=== PATIENT | female | born 1990 | race Two or more races ===

== ENCOUNTER 2019-02-19 06:51 | Emergency (ER) | payer MEDICAID ==
[~2019-02-19] VITALS: Ht 154.9 cm; Wt 58.1 kg
[2019-02-19] MEDS ORDERED: SODIUM CHLORIDE 0.9% 500 ML IV ONE (07:57)
[2019-02-19 08:17] LABS: Basophils # (auto) 0.1 uL; Basophils % (auto) 0.5 % (0.0-2.0); Eosinophils # (auto) 0.1 uL; Eosinophils % (auto) 0.7 % (0.0-7.0); Hematocrit 34.9 % (36.0-46.0); Hemoglobin 11.8 g/dL (12.2-16.2); Lymphocytes # (auto) 1.5 uL; Lymphocytes % (auto) 11.5 % (10.0-50.0); Mean Corpuscular Hgb Conc. 33.8 g/dL (32.0-36.0); Mean Corpuscular Volume 91.8 fL (80.0-100.0); Monocytes # (auto) 0.5 uL; Monocytes % (auto) 3.6 % (0.0-12.0); Neutrophils % (auto) 83.7 % (37.0-80.0); Platelet Count (auto) 203 10^3/uL (140-450); Red Cell Distribution Width 12.9 % (11.8-14.3); White Blood Cell 13.1 10^3/uL (4.4-10.8)
[2019-02-19 08:32] LABS: BUN/Creatinine Ratio 19.6; Calcium 7.8 mg/dL (8.5-10.1); Potassium 3.9 mmol/L (3.5-5.1)
[2019-02-19 08:36] LABS: INR 0.96 (0.9-1.15); Partial Thromboplastin Time 22.9 sec (23.64-32.05)
[2019-02-19 08:38] LABS: Bilirubin, Total 0.2 mg/dL (0.2-1.0)
[2019-02-19 08:39] LABS: Total Protein 6.2 g/dL (6.4-8.2)
[2019-02-19 08:53] LABS: Urine Bacteria NONE SEEN /hpf (None Seen); Urine Blood 3+ /uL (Negative); Urine WBC 315 /hpf (0 - 5); Urine WBC Clumps PRESENT /hpf (None Seen)
[2019-02-19 08:57] LABS: Urine Specific Gravity 1.026 (1.001-1.035)
[2019-02-19] MEDS ORDERED: FERROUS SULFATE 300 MG/5 ML ORAL LIQ GT ONE (09:00)
[2019-02-19] MEDS ORDERED: cefTRIAXone 1GM/50ML D5W 50 ML IV ONE (09:45)
[2019-02-19] MEDS ORDERED: ONDANSETRON HCL 4 MG/2 ML VIAL IV ONE ×2 (09:45→11:30)
[2019-02-19] MEDS ORDERED: MORPHINE SULFATE 4 MG/ML SYR/VIAL IV ONE ×2 (09:45→11:30)
[2019-02-19] MEDS ORDERED: HYDROmorphone HCL 2 MG/ML VL IV ONE (11:30)
[2019-02-19 11:41] VITALS: BP 116/59
== END 2019-02-19 11:53 | disposition home or self-care (01) ==
LOC: ER 06:51 → EDBD 06:51 → ER 11:53
DX: N93.8 Other specified abnormal uterine and vaginal bleeding (principal); D64.9 Anemia, unspecified; N39.0 Urinary tract infection, site not specified; R42 Dizziness and giddiness
CPT/HCPCS: 36415; 76856; 80053; 81001; 84702; 85025; 85610; 85730; 86850; 86900; 86901; 96361; 96365; 96375; 96376; 99284; J0696; J1170; J2270; J2405; J7040

== ENCOUNTER 2021-01-01 15:08 | Emergency (ER) | payer MEDICAID ==
[~2021-01-01] VITALS: Ht 154.9 cm; Wt 59.0 kg
[2021-01-01 15:08] VITALS: BP 131/78
[2021-01-01 16:28] LABS: Basophils # (auto) 0 10 ^3/uL (0-0.2); Basophils % (auto) 0.2 % (0.0-2.0); Eosinophils # (auto) 0 10 ^3/uL (0-0.8); Hematocrit 41.8 % (36.0-46.0); Hemoglobin 13.8 g/dL (12.2-16.2); Lymphocytes # (auto) 0.9 10 ^3/uL (0.4-5.4); Lymphocytes % (auto) 5.9 % (10.0-50.0); Mean Corpuscular Volume 93.9 fL (80.0-100.0); Monocytes # (auto) 0.5 10 ^3/uL (0-1.3); Monocytes % (auto) 3.1 % (0.0-12.0); Neutrophils # (auto) 14.4 10 ^3/uL (1.6-8.6); Neutrophils % (auto) 90.8 % (37.0-80.0); Red Blood Cells 4.45 10^6/uL (4.0-5.20); Red Cell Distribution Width 12.8 % (11.8-14.3); White Blood Cell 15.9 10^3/uL (4.4-10.8)
[2021-01-01 16:45] LABS: Alanine Aminotransferase 37 U/L (13-56); Albumin 3.5 g/dL (3.4-5.0); Amylase 30 U/L (25-115); Anion Gap 8 (5-15); Aspartate Aminotransferase 28 U/L (15-37); BUN/Creatinine Ratio 20.3; Blood Urea Nitrogen 12 mg/dL (7-18); Calcium 9.1 mg/dL (8.5-10.1); Carbon Dioxide 21 mmol/L (21-32); Chloride 108 mmol/L (98-107); GFR African American 154 mL/min; GFR Non-African American 127 mL/min; Glucose 118 mg/dL (74-106); Lipase 76 U/L (73-393); Potassium 4.2 mmol/L (3.5-5.1); Sodium 137 mmol/L (136-145)
[2021-01-01 16:48] LABS: Alkaline Phosphatase 55 U/L (45-117); Bilirubin, Total 0.5 mg/dL (0.2-1.0); Total Protein 8.2 g/dL (6.4-8.2)
== END 2021-01-01 20:54 | disposition left against medical advice (07) ==
LOC: EDSEX 15:08 → ER 15:08 → EDBD 15:08 → ER 20:54
DX: R10.84 Generalized abdominal pain (principal); R11.2 Nausea with vomiting, unspecified; R19.7 Diarrhea, unspecified; Z53.21 Procedure and treatment not carried out due to patient leaving prior to being seen by health care provider
CPT/HCPCS: 36415; 80053; 82150; 83690; 85025

== ENCOUNTER 2022-10-28 18:11 | Emergency (ER) | payer MEDICAID ==
[~2022-10-28] VITALS: Ht 154.9 cm; Wt 67.8 kg
[2022-10-28] MEDS ORDERED: HYDROcodone-ACET 5/325MG TAB PO ONE (21:15)
[2022-10-28] MEDS ORDERED: TRAM50TA2 PO ×2 (22:13→22:28)
[2022-10-28 22:50] VITALS: BP 116/65
== END 2022-10-28 22:52 | disposition home or self-care (01) ==
LOC: ER 18:11
DX: S50.11XD Contusion of right forearm, subsequent encounter (principal); R51.9 Headache, unspecified; R42 Dizziness and giddiness; M54.2 Cervicalgia; R07.9 Chest pain, unspecified; V43.52XD Car driver injured in collision with other type car in traffic accident, subsequent encounter
CPT/HCPCS: 70450; 71250; 72125; 73090; 74176